=== PATIENT | female | born 1965 | race Caucasian/White ===

== ENCOUNTER 2018-11-28 20:56 | Emergency (ER) | payer MEDICARE, OTHER ==
[~2018-11-28] VITALS: Ht 170.2 cm; Wt 90.7 kg
[2018-11-28] MEDS ORDERED: CYCL10TA9 PO (21:38)
[2018-11-28] MEDS ORDERED: IBUP-1780 PO (21:38)
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
[2018-11-28 21:56] VITALS: BP 133/81
== END 2018-11-28 21:56 | disposition home or self-care (01) ==
LOC: ER FS 20:58
DX: S13.9XXA Sprain of joints and ligaments of unspecified parts of neck, initial encounter (principal); S29.011A Strain of muscle and tendon of front wall of thorax, initial encounter; F41.9 Anxiety disorder, unspecified; F32.9 Major depressive disorder, single episode, unspecified; F17.210 Nicotine dependence, cigarettes, uncomplicated; V43.62XA Car passenger injured in collision with other type car in traffic accident, initial encounter; Y92.411 Interstate highway as the place of occurrence of the external cause
CPT/HCPCS: 99282

== ENCOUNTER 2020-05-19 16:51 | Emergency (ER) | payer MEDICARE ==
[~2020-05-19] VITALS: Ht 170.2 cm; Wt 79.2 kg
[~2020-05-19 16:51] MED LIST: CYCL10TA9 PO; IBUP-1780 PO
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
[2020-05-19 17:15] LABS: BASOPHILS % (AUTO) 1 % (0-10); EOSINOPHILS % (AUTO) 2 % (0-10); HEMATOCRIT 54 % (35-52); LYMPHOCYTES % (AUTO) 38 % (12-44); MEAN CORPUSCULAR HEMOGLOBIN 29 PG (25-34); MEAN CORPUSCULAR HGB CONC 34 G/DL (32-36); MEAN CORPUSCULAR VOLUME 87 FL (80-99); MEAN PLATELET VOLUME 9.8 FL (7.4-10.4); MONOCYTES % (AUTO) 6 % (0-12); NEUTROPHILS % (AUTO) 53 % (42-75); PLATELET COUNT 345 10^3/uL (130-400); WHITE BLOOD COUNT 14.3 10^3/uL (4.3-11.0)
[2020-05-19] MEDS ORDERED: ASPIRIN 81 MG CHEW (CHILDREN'S ASA) PO ONE (17:15)
[2020-05-19 17:16] LABS: BASOPHILS # (AUTO) 0.1 10^3/uL (0.0-0.1); EOSINOPHILS # (AUTO) 0.3 10^3/uL (0.0-0.3); LYMPHOCYTES # (AUTO) 5.4 X 10^3 (1.0-4.0); MONOCYTES # (AUTO) 0.9 X 10^3 (0.0-1.0); NEUTROPHILS # (AUTO) 7.6 X 10^3 (1.8-7.8)
--- NOTE | 2020-05-19 17:18 | Diagnostic Imaging Report ---
INDICATION: Cough and chest pain. COMPARISON: None. FINDINGS: Single view of the chest demonstrates minimal atelectasis in both bases. There is some hyperinflation. The heart is normal. There is no pneumothorax or acute infiltrate. No large effusion seen. IMPRESSION: Minimal basilar atelectasis with probable COPD. Dictated by: Dictated on workstation # [id number]
[2020-05-19 17:32] LABS: INR 0.9 (0.8-1.4); PROTHROMBIN TIME PATIENT 12.5 SEC (12.2-14.7)
[2020-05-19 17:33] LABS: CARBON DIOXIDE 31 MMOL/L (21-32); CHLORIDE 98 MMOL/L (98-107); POTASSIUM 3.4 MMOL/L (3.6-5.0); SODIUM 137 MMOL/L (135-145)
[2020-05-19 17:34] LABS: ALANINE AMINOTRANSFERASE 24 U/L (0-55); ALBUMIN 4.2 GM/DL (3.2-4.5); ALKALINE PHOSPHATASE 198 U/L (40-136); BILIRUBIN,TOTAL 0.2 MG/DL (0.1-1.0); BUN/CREATININE RATIO 11; CALCIUM 8.7 MG/DL (8.5-10.1); CREATININE SERUM 0.57 MG/DL (0.60-1.30); GFR ESTIMATED > 60; GLUCOSE 103 MG/DL (70-105); MAGNESIUM 2.1 MG/DL (1.6-2.4); TOTAL PROTEIN 7.9 GM/DL (6.4-8.2)
[2020-05-19 17:45] LABS: BAND NEUTROPHILS 1 %; LYMPHOCYTES % (MANUAL) 37 %; MONOCYTES % (MANUAL) 3 %; NEUTROPHILS % (MANUAL) 54 %
[2020-05-19 17:46] LABS: BASOPHILS % (MANUAL) 0 %; EOSINOPHILS % (MANUAL) 5 %
[2020-05-19] MEDS ORDERED: AZIT250T12 PO (19:17)
[2020-05-19 19:20] VITALS: BP 107/74
== END 2020-05-19 19:20 | disposition home or self-care (01) ==
LOC: EDUNIT# 16:51 → ER FS 16:52
DX: J06.9 Acute upper respiratory infection, unspecified (principal); R07.9 Chest pain, unspecified; Z77.22 Contact with and (suspected) exposure to environmental tobacco smoke (acute) (chronic)
CPT/HCPCS: 36415; 71045; 80053; 83735; 83874; 84484; 85007; 85027; 85610; 85730; 93041

== ENCOUNTER 2022-06-12 18:00 | Emergency (ER) | payer MEDICARE ==
[~2022-06-12] VITALS: Ht 170 cm; Wt 70.0 kg
[~2022-06-12 18:00] MED LIST changes: +AZIT250T12 PO; +CYCL10TA25 PO; -CYCL10TA9 PO
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
[2022-06-12 18:10] VITALS: BP 130/77
--- NOTE | 2022-06-12 18:37 | Diagnostic Imaging Report ---
PROCEDURE: CT orbit without contrast. TECHNIQUE: Multiple contiguous axial images were obtained through the facial bones without the use of intravenous contrast. Auto Exposure Controls were utilized during the CT exam to meet ALARA standards for radiation dose reduction. INDICATION: 57-year-old female injured in the right eye after being pecked by chicken. COMPARISONS: None FINDINGS: Axial images in sagittal and coronal reconstructions of the facial bones and orbits show normal-appearing visualized portions of the mandible and maxilla. There is a severe acute on chronic left maxillary sinus disease with mild chronic right maxillary sinus disease. The left ostiomeatal complexes are obstructed. The right ostiomeatal complex appears to be patent. Ethmoid air cells, frontal sinuses and sphenoid sinuses are well-pneumatized. Orbits including both globes, retro-orbital extraconal, conal and intraconal spaces are grossly unremarkable. Zygomatic arches and pterygoid plates are symmetric. Mastoid air cells are well-pneumatized. IMPRESSION: 1. Acute on chronic severe left maxillary sinus disease with mild chronic right maxillary sinus disease. 2. Orbits including both globes, retro-orbital extraconal, conal and intraconal spaces are normal. 3. Additional nonemergent findings, as described. Dictated by: Dictated on workstation # [id number]
[2022-06-12] MEDS ORDERED: OFLO5DRO3 OP (18:47)
== END 2022-06-12 18:52 | disposition home or self-care (01) ==
LOC: EDUNIT# 18:00 → ER FS 18:03
DX: S05.01XA Injury of conjunctiva and corneal abrasion without foreign body, right eye, initial encounter (principal); H11.31 Conjunctival hemorrhage, right eye; X58.XXXA Exposure to other specified factors, initial encounter
CPT/HCPCS: 70480